=== PATIENT | female | born 1965 | race Caucasian/White ===

== ENCOUNTER 2023-05-08 19:39 | Emergency (ER) | payer BC, OTHER, SELFPAY ==
[2023-05-08] MEDS ORDERED: Acetaminophen/Codeine 30-300mg Tablet ONE (20:44)
[2023-05-08] MEDS ORDERED: Amoxicillin/Potassium Clav 875 MG TAB ONE (20:45)
[2023-05-08] MEDS ORDERED: Ondansetron ODT 4 MG TAB ONE (20:45)
== END 2023-05-08 23:04 | disposition home or self-care (01) ==
LOC: CSHERS 19:39
DX: K04.7 Periapical abscess without sinus (principal)
CPT/HCPCS: 99283; Q0162